=== PATIENT | female | born 2000 | race African-American/Black ===

== ENCOUNTER 2019-01-21 22:00 | Emergency (ER) | payer BC ==
[~2019-01-21] VITALS: Ht 170.2 cm; Wt 108.0 kg
[2019-01-21 22:05] VITALS: BP 142/96
--- NOTE | 2019-01-21 22:10 | NUR ---
PER NITIN VIDAL, PT OKAY TO WAIT IN LOBBY FOR BED IN DEPT.
[2019-01-21] MEDS ORDERED: OMEP20TC11 PO (22:13)
[2019-01-21] MEDS ORDERED: [UNRECOGNIZED DRUG - CODE] PO (22:13)
[2019-01-21] MEDS ORDERED: PRO.5 PO (22:13)
[2019-01-21] MEDS ORDERED: PROG1 PO (22:13)
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
--- NOTE | 2019-01-21 22:28 | NUR ---
PT AMBULATED TO BED 03.
--- NOTE | 2019-01-21 22:40 | NUR ---
Dr. Rios examining patient.
[2019-01-21 22:51] LABS: BASOPHILS % (AUTO) 0.3 % (0.0-2.0); EOSINOPHILS % (AUTO) 0.7 % (0.0-4.0); HEMATOCRIT 32.3 % (36-48); HEMOGLOBIN 10.4 g/dL (12.0-16.0); LYMPHOCYTES % (AUTO) 30.9 % (20.5-51.1); MEAN CORPUSCULAR HEMOGLOBIN 26 pg (27-31); MEAN CORPUSCULAR HGB CONC 32 g/dL (33-37); MEAN CORPUSCULAR VOLUME 79.4 fL (80-94); MONOCYTES # (AUTO) 0.3 K/uL (0.8-1.0); MONOCYTES % (AUTO) 9.3 % (1.7-9.3); NEUTROPHILS % (AUTO) 58.8 % (42.2-75.2); PLATELET COUNT (AUTO) 126 K/uL (140-450); RED BLOOD CELL COUNT(AUTO) 4.07 MIL/uL (4.20-5.40); RED CELL DISTRIBUTION WIDTH 15.7 % (11.6-13.7); WHITE BLOOD COUNT (AUTO) 3.4 K/uL (4.5-11.0)
[2019-01-21 23:03] LABS: ANION GAP 15.3 (8-16); CARBON DIOXIDE 26.3 mmol/L (21-32); CREATININE 0.7 mg/dL (0.6-1.3); POTASSIUM 3.6 mmol/L (3.5-5.1)
[2019-01-21 23:09] LABS: ALBUMIN 3.6 g/dL (3.4-5.0); TOTAL BILIRUBIN 0.5 mg/dL (0.0-1.0)
[2019-01-21] MEDS ORDERED: ACETAMINOPHEN EXTRA STRENGTH 500 MG TAB PO ONE (23:30)
[2019-01-21 23:39] VITALS: BP 140/96
--- NOTE | 2019-01-21 23:39 | NUR ---
Patient discharged with v/s stable. Written and verbal after care instructions given and explained. Patient verbalized understanding. Ambulatory with steady gait. All questions addressed prior to discharge. Advised to follow up with PMD.
== END 2019-01-21 23:39 | disposition home or self-care (01) ==
LOC: MED 22:00
DX: R07.89 Other chest pain (principal); R06.02 Shortness of breath; Z86.718 Personal history of other venous thrombosis and embolism; Z88.5 Allergy status to narcotic agent; Z79.899 Other long term (current) drug therapy
CPT/HCPCS: 36415; 71045; 80053; 84484; 85025; 85379; 93005; 99284

== ENCOUNTER 2019-05-13 05:58 | Emergency (ER) | payer BC ==
[~2019-05-13] VITALS: Ht 170.2 cm; Wt 106.6 kg
[~2019-05-13 05:58] MED LIST: OMEP20TC11 PO; PRO.5 PO; PROG1 PO; [UNRECOGNIZED DRUG - CODE] PO
[2019-05-13 06:03] VITALS: BP 124/82
[2019-05-13] MEDS ORDERED: KETOROLAC 30 MG/ML VIAL IVP ONE (06:20)
[2019-05-13] MEDS ORDERED: NACL 0.9% 1,000 ML IV ONE (06:20)
[2019-05-13] MEDS ORDERED: ACETAMINOPHEN EXTRA STRENGTH 500 MG TAB PO ONE (06:25)
[2019-05-13 07:05] LABS: APPEARANCE,URINE HAZY (CLEAR); BILIRUBIN,URINE 1+ (NEGATIVE); BLOOD, URINE NEGATIVE (NEGATIVE); COLOR,URINE YELLOW (YELLOW); EOSINOPHILS % (AUTO) 0.1 % (0.0-4.0); HEMATOCRIT 33.3 % (36-48); HEMOGLOBIN 10.7 g/dL (12.0-16.0); LEUKOCYTE ESTERASE ,URINE 2+ (NEGATIVE); LYMPHOCYTES # (AUTO) 0.2 K/uL (2.5-16.5); MEAN CORPUSCULAR HEMOGLOBIN 25 pg (27-31); MEAN CORPUSCULAR HGB CONC 32 g/dL (33-37); MEAN CORPUSCULAR VOLUME 78.6 fL (80-94); MONOCYTES # (AUTO) 0.1 K/uL (0.8-1.0); MONOCYTES % (AUTO) 1.7 % (1.7-9.3); NEUTROPHILS # (AUTO) 6.4 K/uL (1.8-7.7); NEUTROPHILS % (AUTO) 95.2 % (42.2-75.2); NITRITE, URINE POSITIVE (NEGATIVE); PLATELET COUNT (AUTO) 121 K/uL (140-450); RED BLOOD CELL COUNT(AUTO) 4.24 MIL/uL (4.20-5.40); RED CELL DISTRIBUTION WIDTH 17.5 % (11.6-13.7); UGLUCOSE NEGATIVE (NEGATIVE); WHITE BLOOD COUNT (AUTO) 6.7 K/uL (4.5-11.0)
[2019-05-13 07:12] LABS: ANION GAP 15.8 (8-16); CARBON DIOXIDE 23.4 mmol/L (21-32); CREATININE 0.8 mg/dL (0.6-1.3); POTASSIUM 3.2 mmol/L (3.5-5.1)
[2019-05-13 07:18] LABS: ALBUMIN 3.5 g/dL (3.4-5.0); TOTAL BILIRUBIN 2.4 mg/dL (0.0-1.0)
[2019-05-13 07:29] LABS: RBC,URINE 0-5 /HPF (0-5)
[2019-05-13] MEDS ORDERED: fentaNYL 0.05 MG/ML VIAL IVP ONE (07:35)
[2019-05-13 08:24] VITALS: BP 110/62
== END 2019-05-13 08:24 | disposition home or self-care (01) ==
LOC: MED 05:58
DX: N39.0 Urinary tract infection, site not specified (principal); R51 Headache; Z98.890 Other specified postprocedural states; Z79.899 Other long term (current) drug therapy; Z88.5 Allergy status to narcotic agent; Z88.8 Allergy status to other drugs, medicaments and biological substances
CPT/HCPCS: 36415; 80053; 81001; 85025; 87086; 87186; 87804; 96374; 96375; 99283; J1885; J3010